=== PATIENT | female | born 1955 | race Caucasian/White ===

== ENCOUNTER 2017-06-10 15:20 | Emergency (ER) | payer MEDICAID ==
[~2017-06-10] VITALS: Ht 162.6 cm; Wt 60.0 kg
[~2017-06-10 15:20] MED LIST: BUPR100T4 PO; ESTR42.5V VAGINAL; HYDR-3133 PO; PROT40TA PO; SIMV40TA PO
[2017-06-10] MEDS ORDERED: IOHEXOL 350 MG/ML 10 ML VIAL (for RAD DIAG) IVCONTRAST ONE (15:21)
[2017-06-10 15:23] VITALS: BP 145/78; PULSE 80; RESP 16; O2SAT 100
[2017-06-10] MEDS ORDERED: ONDANSETRON HCL 4 MG/2 ML VIAL IVP ONE (17:00)
[2017-06-10] MEDS ORDERED: SODIUM CHLORIDE 0.9% FLUSH 10 ML FLUSH IV FLUSH PRN (17:00)
[2017-06-10] MEDS ORDERED: MORPHINE SULFATE 4 MG/ML INJ IV PUSH ONE (17:00)
[2017-06-10] MEDS ORDERED: SODIUM CHLOR 0.9% 1000 ML INJ 1,000 ML IV SCH (17:00)
[2017-06-10 17:10] VITALS: BP 127/82; PULSE 80; RESP 16; TEMP 97.7; O2SAT 100
--- NOTE | 2017-06-10 17:10 | PD ---
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 62-year-old female here for evaluation of right lower quadrant abdominal pain. Pain started yesterday evening and has been intermittent, described as pressure , moderate to severe, radiates down her right leg. Pain is associated with nausea but no vomiting. She is also noted loose bowel movements that are nonbloody. History of hysterectomy and cholecystectomy. No urinary symptoms. No fevers. PFSH Past Medical History Cancer: No Cardiovascular Problems: No High Cholesterol: Yes Diabetes: No Endocrine: No GERD: Yes Genitourinary: Yes (HX URETHRAL STRICTURES) Hepatitis: No Hiatal Hernia: No Immune Disorder: No Musculoskeletal: No Neurologic: No Psychiatric: Yes (DEPRESSION) Reproductive: No Respiratory: No Pancreatitis: Yes Thyroid Disease: No Past Surgical History Abdominal Surgery: Yes (LAP FABIAN) AICD: No Body Medical Devices: RIGHT COCHLEAR IMPLANT Section: Yes Cholecystectomy: Yes Ear Surgery: Yes (RIGHT COCHLEAR IMPLANT) Eye Surgery: Yes (LASIK RON.) Genitourinary Surgery: Yes (URETHRAL DILATION) Gynecologic Surgery: Yes (C SECTION) Hysterectomy: Yes Joint Replacement: No Pacemaker: No Tonsillectomy: Yes Social History Alcohol Use: No Tobacco Use: No Substance Use: No Allergies-Medications (Allergen,Severity, Reaction): Coded Allergies: No Known Allergies (Verified , 06/10/17) Reported Meds & Prescriptions Reported Meds & Active Scripts Active Protonix (Pantoprazole Sodium) 40 Mg Tab 40 Mg PO DAILY Reported Hydroxyzine HCl 25 Mg Tab 50 Mg PO BID Bupropion HCl 100 Mg Tab 100 Mg PO DAILY Simvastatin 40 Mg Tab 40 Mg PO DAILY Review of Systems Except as stated in HPI: all other systems reviewed are Neg Physical Exam Narrative GENERAL: Well-developed, well-nourished, comfortable, no apparent distress. SKIN: Focused skin assessment warm/dry. No rash. HEAD: Atraumatic. Normocephalic. EYES: Pupils equal and round. No scleral icterus. No injection or drainage. ENT: Mucous membranes pink and moist. NECK: Trachea midline. No JVD. CARDIOVASCULAR: Regular rate and rhythm. No murmur appreciated. RESPIRATORY: No accessory muscle use. Clear to auscultation. Breath sounds equal bilaterally. GASTROINTESTINAL: Abdomen soft, nondistended. Mild right lower quadrant and suprapubic tenderness without peritoneal signs. Rest of abdomen is soft and nontender. Normal bowel sounds. No hernias. MUSCULOSKELETAL: No obvious deformities. No clubbing. No cyanosis. No edema. Normal range of motion in bilateral lower extremities at the hip and knee without obvious deformity, without overlying warmth or erythema. NEUROLOGICAL: Awake and alert. No obvious cranial nerve deficits. Motor grossly within normal limits. Normal speech. PSYCHIATRIC: Appropriate mood and affect; insight and judgment normal. Data Data Last Documented VS Vital Signs Date Time Temp Pulse Resp B/P (MAP) Pulse Ox O2 Delivery O2 Flow Rate FiO2 06/10/17 19:19 85 14 130/64 (86) 98 Room Air 06/10/17 17:10 97.7 Orders Orders Complete Blood Count With Diff (06/10/17 17:00) Comprehensive Metabolic Panel (06/10/17 17:00) Lipase (06/10/17 17:00) Prothrombin Time / Inr (Pt) (06/10/17 17:00) Act Partial Throm Time (Ptt) (06/10/17 17:00) Urinalysis - C+S If Indicated (06/10/17 17:00) Ct Abd/Pel W Iv Contrast(Rout) (06/10/17 17:00) Iv Access Insert/Monitor (06/10/17 17:00) Ecg Monitoring (06/10/17 17:00) Oximetry (06/10/17 17:00) Morphine Inj (Morphine Inj) (06/10/17 17:00) Ondansetron Inj (Zofran Inj) (06/10/17 17:00) Sodium Chlor 0.9% 1000 Ml Inj (Ns 1000 M (06/10/17 17:00) Sodium Chloride 0.9% Flush (Ns Flush) (06/10/17 17:00) Oral Contrast - Adult (06/10/17 17:05) Diatrizoate Liq ( Gastroview Liq) (06/10/17 17:25) Iohexol 350 Inj (Omnipaque 350 Inj) (06/10/17 15:21) Labs Laboratory Tests Test 06/10/17 17:20 06/10/17 17:32 White Blood Count 12.5 TH/MM3 Red Blood Count 4.89 MIL/MM3 Hemoglobin 15.1 GM/DL Hematocrit 43.5 % Mean Corpuscular Volume 88.8 FL Mean Corpuscular Hemoglobin 30.8 PG Mean Corpuscular Hemoglobin Concent 34.6 % Red Cell Distribution Width 13.0 % Platelet Count 269 TH/MM3 Mean Platelet Volume 8.2 FL Neutrophils (%) (Auto) 71.5 % Lymphocytes (%) (Auto) 21.0 % Monocytes (%) (Auto) 6.7 % Eosinophils (%) (Auto) 0.3 % Basophils (%) (Auto) 0.5 % Neutrophils # (Auto) 8.9 TH/MM3 Lymphocytes # (Auto) 2.6 TH/MM3 Monocytes # (Auto) 0.8 TH/MM3 Eosinophils # (Auto) 0.0 TH/MM3 Basophils # (Auto) 0.1 TH/MM3 CBC Comment DIFF FINAL Differential Comment Prothrombin Time 10.6 SEC Prothromb Time International Ratio 1.0 RATIO Activated Partial Thromboplast Time 25.5 SEC Blood Urea Nitrogen 11 MG/DL Creatinine 0.78 MG/DL Random Glucose 104 MG/DL Total Protein 8.1 GM/DL Albumin 4.1 GM/DL Calcium Level 9.7 MG/DL Alkaline Phosphatase 72 U/L Aspartate Amino Transf (AST/SGOT) 23 U/L Alanine Aminotransferase (ALT/SGPT) 27 U/L Total Bilirubin 0.3 MG/DL Sodium Level 139 MEQ/L Potassium Level 4.1 MEQ/L Chloride Level 107 MEQ/L Carbon Dioxide Level 23.7 MEQ/L Anion Gap 8 MEQ/L Estimat Glomerular Filtration Rate 75 ML/MIN Lipase 326 U/L Urine Color YELLOW Urine Turbidity CLEAR Urine pH 7.5 Urine Specific [place] 1.023 Urine Protein TRACE mg/dL Urine Glucose (UA) NEG mg/dL Urine Ketones NEG mg/dL Urine Occult Blood NEG Urine Nitrite NEG Urine Bilirubin NEG Urine Urobilinogen LESS THAN 2.0 MG/DL Urine Leukocyte Esterase NEG Urine WBC 1 /hpf Urine Squamous Epithelial Cells 1 /hpf Urine Mucus FEW /lpf Microscopic Urinalysis Comment CULT NOT INDICATED MDM Medical Decision Making Medical Screen Exam Complete: Yes Emergency Medical Condition: Yes Differential Diagnosis Appendicitis, colitis, diverticulitis, UTI, cystitis Narrative Course Vital signs reviewed and are within normal limits. CBC: WBC 12.5, hemoglobin 15.1, hematocrit 43.5, platelets 269. CMP is unremarkable. UA is not suggestive of UTI. CT abdomen pelvis: CONCLUSION: No acute intra-abdominal or pelvic process. Surgical absence of the gallbladder and uterus. Once again translational services were used to informed the patient of all of her results. She is resting comfortably. She is stable for discharge home with outpatient follow-up with her primary care physician this week. She was informed on when to return to the emergency department. She verbalizes understanding and agreement with plan. Diagnosis Primary Impression: Abdominal pain Qualified Codes: R10.31 - Right lower quadrant pain Referrals: Primary Care Physician 3 days Additional Instructions: Follow-up with your primary care physician this week. Return to the emergency department for worsening symptoms or any other concerns. Disposition: 01 DISCHARGE HOME Condition: Stable Gary Owens MD Jun 10, 2017 17:10
[2017-06-10] MEDS ORDERED: DIATRIZOATE MEGLUM/DIATRIZOATE SOD 9 ML CUP ONE (17:25)
[2017-06-10 17:34] LABS: AUTOMATED NEUTROPHIL # 8.9 TH/MM3 (1.8-7.7); BASOPHIL # 0.1 TH/MM3 (0-0.2); BASOPHIL % 0.5 % (0.0-2.0); EOSINOPHIL % 0.3 % (0.0-4.0); HEMATOCRIT 43.5 % (35.0-46.0); HEMO FLAGS DIFF FINAL; LYMPHOCYTE # 2.6 TH/MM3 (1.0-4.8); MEAN CELL VOLUME 88.8 FL (80.0-100.0); MEAN CORPUSCULAR HEMOGLOBIN 30.8 PG (27.0-34.0); MEAN CORPUSCULAR HGB CONC 34.6 % (32.0-36.0); MONO % 6.7 % (0.0-8.0); NEUT % 71.5 % (16.0-70.0); PLATELET COUNT 269 TH/MM3 (150-450); RED BLOOD COUNT 4.89 MIL/MM3 (4.00-5.30); WHITE BLOOD COUNT 12.5 TH/MM3 (4.0-11.0)
[2017-06-10 17:43] LABS: ANION GAP 8 MEQ/L (5-15); AST (GOT) 23 U/L (15-37); BICARBONATE 23.7 MEQ/L (21.0-32.0); BLOOD UREA NITROGEN 11 MG/DL (7-18); CHLORIDE 107 MEQ/L (98-107); GLOMERULAR FILTRATION RATE 75 ML/MIN (>89); POTASSIUM 4.1 MEQ/L (3.5-5.1); SODIUM (NA) 139 MEQ/L (136-145)
[2017-06-10 17:44] LABS: ALT (GPT) 27 U/L (10-53); APTT (PATIENT) 25.5 SEC (24.3-30.1); PROTHROMBIN TIME - PATIENT 10.6 SEC (9.8-11.6)
[2017-06-10 17:46] LABS: ALKALINE PHOSPHATASE 72 U/L (45-117); TOTAL BILIRUBIN ADULT 0.3 MG/DL (0.2-1.0)
[2017-06-10 17:50] LABS: BLOOD, URINE NEG (NEG); COMMENT (UR) CULT NOT INDICATED; CULTURE IF INDICATED CULT NOT INDICATED; GLUCOSE,URINE NEG (NEG); KETONE, URINE NEG (NEG); MUCUS URINE FEW /lpf (OCC); NITRITE,URINE NEG (NEG); PH, URINE 7.5 (5.0-8.5); SQUAMOUS EPITHELIAL CELL URINE 1 /hpf (0-5); URINE COLOR YELLOW (YELLW/STRAW)
[2017-06-10 18:34] VITALS: BP 121/68; PULSE 77; RESP 16; O2SAT 96
--- NOTE | 2017-06-10 19:13 | RADRPT ---
EXAM DATE/TIME: 06/10/2017 18:44 [facility] COMPARISON: No previous studies available for comparison. INDICATIONS : Diffuse abdomen pain for one day. IV CONTRAST: 96 cc Omnipaque 350 (iohexol) IV ORAL CONTRAST: Prescribed oral contrast ingested. RADIATION DOSE: 6.64 CTDIvol (mGy) MEDICAL HISTORY : Urethral strictors SURGICAL HISTORY : Cholecystectomy. Hysterectomy.Bladder sx ENCOUNTER: Initial ACUITY: 1 day PAIN SCALE: 4/10 LOCATION: Bilateral lower quadrant TECHNIQUE: Volumetric scanning of the abdomen and pelvis was performed. Using automated exposure control and adjustment of the mA and/or kV according to patient size, radiation dose was kept as low as reasonably achievable to obtain optimal diagnostic quality images. DICOM format image data is av ailable electronically for review and comparison. FINDINGS: LOWER LUNGS: The visualized lower lungs are clear. LIVER: Homogeneous density without lesion. There is no dilation of the biliary tree. Clips in pl [place] prior cholecystectomy SPLEEN: Normal size without lesion. PANCREAS: Within normal limits. KIDNEYS: Normal in size and shape. There is no mass, stone or hydronephrosis. ADRENAL GLANDS: Within normal limits. VASCULAR: There is no aortic aneurysm. BOWEL/MESENTERY: The stomach, small bowel, and colon demonstrate no acute abnormality. There is no free intraperitoneal air or fluid. ABDOMINAL WALL: Within normal limits. RETROPERITONEUM: There is no lymphadenopathy. BLADDER: No wall thickening or mass. REPRODUCTIVE: Within normal limits. Surgical absence of the uterus INGUINAL: There is no lymphadenopathy or hernia. MUSCULOSKELETAL: Within normal limits for patient age. CONCLUSION: No acute intra-abdominal or pelvic process. Surgical absence of the gallbladder and u terus. Chaim Meier MD on June 10, 2017 at 19:08 Board Certified Radiologist. This report was verified electronically.
[2017-06-10 19:19] VITALS: BP 130/64; PULSE 85; RESP 14; O2SAT 98
== END 2017-06-10 20:10 | disposition home or self-care (01) ==
LOC: NEPD 15:20
DX: R10.31 Right lower quadrant pain (principal)
CPT/HCPCS: 74177; 80053; 81001; 83690; 85025; 85610; 85730; 96361; 96374; 96375; 99285; J2270; J2405; J7030; Q9963; Q9967